=== PATIENT | male | born 1995 | race Caucasian/White ===

== ENCOUNTER 2017-05-04 17:33 | Emergency (ER) | payer OTHER ==
[~2017-05-04] VITALS: Ht 180.3 cm; Wt 61.2 kg
[2017-05-04] MEDS ORDERED: KEFLEX500 M1 PO (18:38)
[2017-05-04 18:45] VITALS: BP 94/41
== END 2017-05-04 18:46 | disposition home or self-care (01) ==
LOC: M.ERS 17:33
DX: S01.112A Laceration without foreign body of left eyelid and periocular area, initial encounter (principal); W21.05XA Struck by basketball, initial encounter; Y93.67 Activity, basketball; Y92.89 Other specified places as the place of occurrence of the external cause; Y99.8 Other external cause status

== ENCOUNTER 2017-05-09 09:25 | Emergency (ER) | payer OTHER ==
[~2017-05-09] VITALS: Ht 170.2 cm; Wt 61.2 kg
[~2017-05-09 09:25] MED LIST: KEFLEX500 M1 PO
[2017-05-09 09:28] VITALS: BP 117/54
== END 2017-05-09 09:53 | disposition home or self-care (01) ==
LOC: M.ERS 09:25
DX: S01.112D Laceration without foreign body of left eyelid and periocular area, subsequent encounter (principal); Z87.891 Personal history of nicotine dependence; X58.XXXD Exposure to other specified factors, subsequent encounter